=== PATIENT | female | born 1985 | race Caucasian/White ===

== ENCOUNTER 2018-02-25 08:21 | Emergency (ER) | payer MEDICAID ==
[~2018-02-25] VITALS: Ht 165.1 cm; Wt 139.4 kg
[~2018-02-25 08:21] MED LIST: ALBU8HFA PO
[2018-02-25 08:31] VITALS: BP 135/86
[2018-02-25] MEDS ORDERED: AZIT500T PO (09:51)
== END 2018-02-25 10:02 | disposition home or self-care (01) ==
LOC: ER 08:22
DX: J06.9 Acute upper respiratory infection, unspecified (principal); F17.200 Nicotine dependence, unspecified, uncomplicated; J45.909 Unspecified asthma, uncomplicated; G89.29 Other chronic pain; Z90.49 Acquired absence of other specified parts of digestive tract; F12.90 Cannabis use, unspecified, uncomplicated; Z60.2 Problems related to living alone; Z56.0 Unemployment, unspecified; Z88.5 Allergy status to narcotic agent; Z79.2 Long term (current) use of antibiotics
CPT/HCPCS: 71046; 99284